=== PATIENT | female | born 1950 | race Caucasian/White ===

== ENCOUNTER 2018-10-02 06:08 | Outpatient (CLI) | payer MEDICARE, OTHER ==
--- NOTE | 2018-10-01 16:10 | NUR ---
PT CALLED X 3 TIMES NO ANSWER.
[~2018-10-02] VITALS: Ht 152.4 cm; Wt 64.5 kg
[2018-10-02 06:46] LABS: EOSINOPHILS 2.7 % (0-7); HEMATOCRIT 41.7 % (36.0-48.0); HEMOGLOBIN 13.7 g/dL (12-16); MCH 28.8 pg (26.0-34.0); MCHC 32.9 g/dL (31.0-37.0); MCV 87.6 fL (80.0-100.0); MEAN PLATELET VOLUME 10.1 fL (7.4-10.4); MONOCYTES 10.4 % (2-11); NEUTROPHILS 46.9 % (40-80); PLATELET COUNT 232 10x3/uL (130-400); RBC 4.76 10x6/uL (4.00-5.40); RDW 14.3 % (11.5-14.5); WBC 4.2 10x3/uL (4.8-10.8)
[2018-10-02 06:50] LABS: INR 1.08 (0.85-1.17); PROTIME 13.5 SECONDS (11.6-15.0)
[2018-10-02 06:51] LABS: APTT 33.2 SECONDS (22.8-39.4)
[2018-10-02 06:57] LABS: ANION GAP 11.4 mmol/L (8-16); CARBON DIOXIDE 29.5 mmol/L (21.0-32.0); CREATININE - SERUM 0.9 mg/dL (0.6-1.3); POTASSIUM - SERUM 3.9 mmol/L (3.5-5.1)
[2018-10-02] MEDS ORDERED: MULTIVITAMIN (07:27)
[2018-10-02] MEDS ORDERED: MINER (07:27)
[2018-10-02] MEDS ORDERED: CELLWISE (07:29)
[2018-10-02] MEDS ORDERED: [UNRECOGNIZED DRUG - OTHER] (07:29)
[2018-10-02] MEDS ORDERED: FLORIFY (07:30)
[2018-10-02] MEDS ORDERED: K2-D3 (07:30)
[2018-10-02] MEDS ORDERED: COQ (07:31)
[2018-10-02] MEDS ORDERED: [UNRECOGNIZED DRUG - OTHER] (07:31)
[2018-10-02] MEDS ORDERED: OS-CAL500 MG PO (07:31)
[2018-10-02] MEDS ORDERED: CRANBERRY ×2 (07:33→07:34)
[2018-10-02] MEDS ORDERED: L-CARNITINE (07:35)
[2018-10-02] MEDS ORDERED: [UNRECOGNIZED DRUG - OTHER] (07:35)
[2018-10-02] MEDS ORDERED: ZESTRIL10 MG PO (07:36)
[2018-10-02] MEDS ORDERED: XALATAN 0.0052.5 ML EACH EYE (07:36)
[2018-10-02] MEDS ORDERED: ALENDRONAT70 MG/75 M PO (07:36)
[2018-10-02] MEDS ORDERED: ELOCON45 GM TOPICAL (07:37)
[2018-10-02 07:41] VITALS: BP 136/74; Ht 152.4 cm; Wt 64.5 kg
--- NOTE | 2018-10-02 11:18 | NUR ---
PCXR HERE AND DONE. TOLERATED WELL
--- NOTE | 2018-10-02 11:39 | NUR ---
[address] CANNON CALLED AND RESULTS OF CXR FINE AND SHE CAN GO HOME IF SHE FEELS OK.
== END 2018-10-02 11:45 | disposition home or self-care (01) ==
LOC: D.SP 06:08 → D.CT 08:00 → D.SP 11:45
PROVIDERS: Specialist; ATTEND Nurse Practitioner Family
DX: C34.91 Malignant neoplasm of unspecified part of right bronchus or lung (principal); Z01.812 Encounter for preprocedural laboratory examination